=== PATIENT | female | born 1990 | race Caucasian/White ===

== ENCOUNTER 2017-01-04 22:41 | Emergency (ER) | payer OTHER ==
--- NOTE | 2017-01-04 23:16 | EDM.PDOC ---
ED HPI GENERAL MEDICAL PROBLEM - General Chief Complaint: Genitourinary Problem Stated Complaint: POSSIBLE UTI Time Seen by Provider: 01/04/17 23:13 - History of Present Illness INITIAL COMMENTS - FREE TEXT/NARRATIVE: HISTORY AND PHYSICAL: History of present illness: Patient 26-year-old female presents with a concern of discomfort with urination frequency and possible urinary tract infection she denies fever chills nausea vomiting other concern Review of systems: As per history of present illness and below otherwise all systems reviewed and negative. Past medical history: As per history of present illness and as reviewed below otherwise noncontributory. Surgical history: As per history of present illness and as reviewed below otherwise noncontributory. Social history: No reported history of drug or alcohol abuse. Family history: As per history of present illness and as reviewed below otherwise noncontributory. Physical exam: HEENT: Atraumatic, normocephalic, pupils reactive, negative for conjunctival pallor or scleral icterus, mucous membranes moist, throat clear, neck supple, nontender, trachea midline. Lungs: Clear to auscultation, breath sounds equal bilaterally, chest nontender. Heart: S1S2, regular, negative for clicks, rubs, or JVD. Abdomen: Soft, nondistended, nontender. Negative for masses or hepatosplenomegaly. Negative for costovertebral tenderness. Pelvis: Stable nontender. Genitourinary: Deferred. Rectal: Deferred. Extremities: Atraumatic, negative for cords or calf pain. Neurovascular unremarkable. Neuro: Awake, alert, oriented. Cranial nerves II through XII unremarkable. Cerebellum unremarkable. Motor and sensory unremarkable throughout. Exam nonfocal. Diagnostics: UA urine culture and sensitivity Therapeutics: None Impression: #1 urinary tract infection Definitive disposition and diagnosis as appropriate pending reevaluation and review of above. Vaginal Pain Score (Numeric/FACES): 6 - Related Data Allergies Allergy/AdvReac Type Severity Reaction Status Date / Time aspartame Allergy Swelling Verified 01/04/17 22:53 sulfamethoxazole Allergy Syncope Verified 01/04/17 22:53 [From Bactrim] trimethoprim [From Bactrim] Allergy Syncope Verified 01/04/17 22:53 Home Meds: Home Meds Topiramate [Topamax] 50 mg PO BID 01/04/17 [History] Past Medical History - Past Health History Medical/Surgical History: Denies Medical/Surgical History HEENT History: Reports: None Cardiovascular History: Reports: Heart Murmur Respiratory History: Reports: None Gastrointestinal History: Reports: None Genitourinary History: Reports: Renal Disease [employer]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 Musculoskeletal History: Reports: None Neurological History: Reports: None Other Neuro History: 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 disease; Injury on T& Aug 03 2016 Psychiatric History: Reports: Anxiety, Depression, PTSD Endocrine/Metabolic History: Reports: None Hematologic History: Reports: None Immunologic History: Reports: None Oncologic (Cancer) History: Reports: None Dermatologic History: Reports: None Other Dermatologic History: chronic recurrent shingles - Infectious Disease History Infectious Disease History: Reports: None - Past Surgical History Head Surgeries/Procedures: Reports: None HEENT Surgical History: Reports: None Cardiovascular Surgical History: Reports: None Respiratory Surgical History: Reports: None GI Surgical History: Reports: None Female Surgical History: Reports: None Musculoskeletal Surgical History: Reports: Other (See Below) Other Musculoskeletal Surgeries/Procedures:: multiple fx (broke arms, nose, toes ) Social & Family History - Family History Family Medical History: Noncontributory - Tobacco Use Smoking Status *Q: Never Smoker Second Hand Smoke Exposure: Yes - Caffeine Use Caffeine Use: Reports: None Caffeine Use Comment: 3-4cups/day - Recreational Drug Use Recreational Drug Use: No ED ROS GENERAL - Review of Systems Review Of Systems: ROS reveals no pertinent complaints other than HPI. ED EXAM, GENERAL - Physical Exam Exam: See Below (See dictation) Course - Vital Signs Last Recorded V/S: Last Vital Signs Temp 35.9 C 01/04/17 22:55 Pulse 111 H 01/04/17 22:55 Resp 17 01/04/17 22:55 BP 157/90 H 01/04/17 22:55 Pulse Ox 97 01/04/17 22:55 - Orders/Labs/Meds Labs: Laboratory Tests 01/04/17 Range/Units 22:45 Urine Color YELLOW Urine Appearance CLOUDY Urine pH 5.5 (5.0-8.0) Ur Specific [place] >= 1.030 (1.001-1.035) Urine Protein 30 (NEGATIVE) mg/dL Urine Glucose (UA) NEGATIVE (NEGATIVE) mg/dL Urine Ketones TRACE H (NEGATIVE) mg/dL Urine Occult Blood LARGE H (NEGATIVE) Urine Nitrite NEGATIVE (NEGATIVE) Urine Bilirubin NEGATIVE (NEGATIVE) Urine Urobilinogen 0.2 (<2.0) EU/dL Ur Leukocyte Esterase MODERATE (NEGATIVE) Urine RBC 30-40 (0-2/HPF) Urine WBC 50-75 (0-5/HPF) Ur Epithelial Cells FEW (NONE-FEW) Urine Bacteria 1+ H (NEGATIVE) Departure - Departure Time of Disposition: 23:15 Disposition: Home, Self-Care 01 Condition: Good Clinical Impression: UTI, Urinary tract infectious disease - Discharge Information Forms: ED Department Discharge Additional Instructions: The following information is given to patients seen in the emergency department who are being discharged to home. This information is to outline your options for follow-up care. We provide all patients seen in our emergency department with a follow-up referral. The need for follow-up, as well as the timing and circumstances, are variable depending upon the specifics of your emergency department visit. If you don't have a primary care physician on staff, we will provide you with a referral. We always advise you to contact your personal physician following an emergency department visit to inform them of the circumstance of the visit and for follow-up with them and/or the need for any referrals to a consulting specialist. The emergency department will also refer you to a specialist when appropriate. This referral assures that you have the opportunity for followup care with a specialist. All of these measure are taken in an effort to provide you with optimal care, which includes your followup. Under all circumstances we always encourage you to contact your private physician who remains a resource for coordinating your care. When calling for followup care, please make the office aware that this follow-up is from your recent emergency room visit. If for any reason you are refused follow-up, please contact the [facility] emergency department at and asked to speak to the emergency department charge nurse. Roro. as prescribed call primary medical doctor on today's return as needed discussed
[2017-01-04 23:23] VITALS: BP 141/88
== END 2017-01-04 23:23 | disposition home or self-care (01) ==
LOC: MW.ED 22:41
DX: N39.0 Urinary tract infection, site not specified (principal); Z88.2 Allergy status to sulfonamides; Z88.8 Allergy status to other drugs, medicaments and biological substances
CPT/HCPCS: 81001; 99282; 99283

== ENCOUNTER 2017-03-07 14:02 | Emergency (ER) | payer OTHER ==
[2017-03-07] MEDS ORDERED: Ondansetron 4 MG Tab.DIS PO ONE (14:29)
[2017-03-07] MEDS ORDERED: Ketorolac 60 MG/2 ML SDV IM ONE (14:29)
--- NOTE | 2017-03-07 14:35 | EDM.PDOC ---
ED HPI GENERAL MEDICAL PROBLEM - General Chief Complaint: Genitourinary Problem Stated Complaint: POSSIBLE UTI Time Seen by Provider: 03/07/17 14:30 Source of Information: Reports: Patient History Limitations: Reports: No Limitations - History of Present Illness INITIAL COMMENTS - FREE TEXT/NARRATIVE: HISTORY AND PHYSICAL: History of present illness: Patient is a 26-year-old female who presents to the emergency room today with complaints of dysuria, bilateral flank pain, suprapubic tenderness, and nausea. Patient reports she has a history of kidney disease and frequently has UTIs and chronic hematuria. This morning she woke up with painful urination and odor. Reports that her symptoms are consistent with previous UTIs. Patient states she's used Macrobid in the past with good relief. Currently requesting something for her nausea. Reports she has had Toradol injection for pain management with good relief, and would like an injection as she is currently uncomfortable. Patient denies any possibility of as she has the Nexplanon implant. Review of systems: As per history of present illness and below otherwise all systems reviewed and negative. Past medical history: As per history of present illness and as reviewed below otherwise noncontributory. Surgical history: As per history of present illness and as reviewed below otherwise noncontributory. Social history: No reported history of drug or alcohol abuse. Family history: As per history of present illness and as reviewed below otherwise noncontributory. Physical exam: Gen.: Nontoxic appearing 26-year-old female. Answers questions appropriately. Able to answer questions in full sentences without shortness of breath. HEENT: Atraumatic, normocephalic, pupils reactive, negative for conjunctival pallor or scleral icterus, mucous membranes moist, throat clear, neck supple, nontender, trachea midline. Lungs: Clear to auscultation, breath sounds equal bilaterally, chest nontender. Heart: S1S2, regular rate and rhythm. Abdomen: Soft, nondistended, generalized tenderness throughout, and suprapubic tenderness with palpation. Negative for masses or hepatosplenomegaly. Positive for costovertebral tenderness bilaterally. Pelvis: Stable nontender. Genitourinary: Deferred. Rectal: Deferred. Extremities: Atraumatic. Moves all herself. Neurovascular unremarkable. Neuro: Awake, alert, oriented. Cranial nerves II through XII unremarkable. Cerebellum unremarkable. Motor and sensory unremarkable throughout. Exam nonfocal. Diagnostics: UA, UC Therapeutics: Toradol IM, Zofran ODT Impression: Dysuria Plan: 1. Pharmacies are currently closed. Patient reports she prefers Macrobid for UTIs. We'll dispense enough medication to get her through until Wednesday when she can fill her rest of her prescription as instrument does not have this medication available to dispense. Urine will be sent for culture. 2. May use Pyridium for discomfort. Take as directed. May use Tylenol and/or ibuprofen for pain and fever control. 3. Follow-up with her primary care provider in the next 1-2 days. Please return to the ED as needed as discussed Definitive disposition and diagnosis as appropriate pending reevaluation and review of above. Onset: Today Onset Date: 03/07/17 Onset Time: 06:00 Location: Reports: Abdomen, Other (Lateral flank and suprapubic) Bilateral Lower Abdominal Pain Score (Numeric/FACES): 8 - Related Data Allergies Allergy/AdvReac Type Severity Reaction Status Date / Time aspartame Allergy Swelling Verified 03/07/17 14:13 sulfamethoxazole Allergy Syncope Verified 03/07/17 14:13 [From Bactrim] trimethoprim [From Bactrim] Allergy Syncope Verified 03/07/17 14:13 Home Meds: Home Meds Topiramate [Topamax] 50 mg PO BID 01/04/17 [History] Past Medical History - Past Health History Medical/Surgical History: Denies Medical/Surgical History HEENT History: Reports: None Cardiovascular History: Reports: Heart Murmur Respiratory History: Reports: None Gastrointestinal History: Reports: None Genitourinary History: Reports: Renal Disease 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 Musculoskeletal History: Reports: None Neurological History: Reports: None Other Neuro History: 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 disease; Injury on & Aug 03 2016 Psychiatric History: Reports: Anxiety, Depression, PTSD, Other (See Below) Other Psychiatric History: borderline personality disorder Endocrine/Metabolic History: Reports: None Hematologic History: Reports: None Immunologic History: Reports: None Oncologic (Cancer) History: Reports: None Dermatologic History: Reports: None Other Dermatologic History: chronic recurrent shingles - Infectious Disease History Infectious Disease History: Reports: None - Past Surgical History Head Surgeries/Procedures: Reports: None HEENT Surgical History: Reports: None Cardiovascular Surgical History: Reports: None Respiratory Surgical History: Reports: None GI Surgical History: Reports: None Female Surgical History: Reports: None Musculoskeletal Surgical History: Reports: Other (See Below) Other Musculoskeletal Surgeries/Procedures:: multiple fx (broke arms, nose, toes ) Social & Family History - Family History Family Medical History: Noncontributory - Tobacco Use Smoking Status *Q: Never Smoker Second Hand Smoke Exposure: No - Caffeine Use Caffeine Use: Reports: Coffee Caffeine Use Comment: 3-4cups/day - Recreational Drug Use Recreational Drug Use: No ED ROS GENERAL - Review of Systems Review Of Systems: ROS reveals no pertinent complaints other than HPI. ED EXAM, GENERAL - Physical Exam Exam: See Below (See dictation) Course - Vital Signs Last Recorded V/S: Last Vital Signs Temp 36.8 C 03/07/17 14:09 Pulse 106 H 03/07/17 14:09 Resp 18 03/07/17 14:09 BP 133/87 03/07/17 14:09 Pulse Ox 99 03/07/17 14:09 - Orders/Labs/Meds Orders: Active Orders 24 hr Category Date Time Status CULTURE URINE [RM] Stat Lab 03/07/17 14:17 Received Labs: Laboratory Tests 03/07/17 Range/Units 14:17 Urine Color YELLOW Urine Appearance CLEAR Urine pH 6.0 (5.0-8.0) Ur Specific [place] 1.025 (1.001-1.035) Urine Protein 30 (NEGATIVE) mg/dL Urine Glucose (UA) NEGATIVE (NEGATIVE) mg/dL Urine Ketones NEGATIVE (NEGATIVE) mg/dL Urine Occult Blood LARGE H (NEGATIVE) Urine Nitrite NEGATIVE (NEGATIVE) Urine Bilirubin NEGATIVE (NEGATIVE) Urine Urobilinogen 0.2 (<2.0) EU/dL Ur Leukocyte Esterase SMALL (NEGATIVE) Urine RBC 35-40 (0-2/HPF) Urine WBC 25-30 (0-5/HPF) Ur Epithelial Cells MODERATE (NONE-FEW) Urine Bacteria 1+ H (NEGATIVE) Meds: Medications Discontinued Medications Generic Name Dose Route Start Last Admin Trade Name Freq PRN Reason Stop Dose Admin Ketorolac Tromethamine 60 mg 03/07/17 14:29 03/07/17 15:02 Toradol IM 03/07/17 14:30 60 mg ONETIME ONE Administration Nitrofurantoin Macrocrystals 100 mg 03/07/17 15:04 Macrobid PO 03/07/17 15:05 ONETIME ONE Ondansetron HCl 4 mg 03/07/17 14:29 03/07/17 15:01 Zofran Odt PO 03/07/17 14:30 4 mg ONETIME ONE Administration Departure - Departure Time of Disposition: 15:15 Disposition: Home, Self-Care 01 Condition: Good Clinical Impression: UTI (urinary tract infection) Qualifiers: Urinary tract infection type: site unspecified Hematuria presence: with hematuria Qualified Code(s): N39.0 - Urinary tract infection, site not specified ; R31.9 - Hematuria, unspecified - Discharge Information Referrals: PCP,None [Primary Care Provider] - Forms: ED Department Discharge Additional Instructions: The following information is given to patients seen in the emergency department who are being discharged to home. This information is to outline your options for follow-up care. We provide all patients seen in our emergency department with a follow-up referral. The need for follow-up, as well as the timing and circumstances, are variable depending upon the specifics of your emergency department visit. If you don't have a primary care physician on staff, we will provide you with a referral. We always advise you to contact your personal physician following an emergency department visit to inform them of the circumstance of the visit and for follow-up with them and/or the need for any referrals to a consulting specialist. The emergency department will also refer you to a specialist when appropriate. This referral assures that you have the opportunity for followup care with a specialist. All of these measure are taken in an effort to provide you with optimal care, which includes your followup. Under all circumstances we always encourage you to contact your private physician who remains a resource for coordinating your care. When calling for followup care, please make the office aware that this follow-up is from your recent emergency room visit. If for any reason you are refused follow-up, please contact the [facility] emergency department at and ask to speak to the emergency department charge nurse. [facility] Primary care- Internal Medicine and Family [address] [address] 1. Please take her Macrobid 1 tablet twice daily 5 days as directed. 2. May use Pyridium for discomfort. Take as directed. May use Tylenol and/or ibuprofen for pain and fever control. 3. Follow-up with her primary care provider in the next 1-2 days. Please return to the ED as needed as discussed - My Orders Last 24 Hours: My Active Orders 03/07/17 14:17 CULTURE URINE [RM] Stat - Assessment/Plan Last 24 Hours: My Active Orders 03/07/17 14:17 CULTURE URINE [RM] Stat
[2017-03-07] MEDS ORDERED: Nitrofurantoin Monohydrate/Macrocrystalline 100 MG Cap PO ONE ×2 (15:04→15:38)
[2017-03-07] MEDS ORDERED: Nitrofurantoin Monohydrate/Macrocrystalline 100 MG Cap ONE (15:20)
[2017-03-07 15:34] VITALS: BP 132/77
== END 2017-03-07 15:32 | disposition home or self-care (01) ==
LOC: MW.ED 14:02
DX: N39.0 Urinary tract infection, site not specified (principal); Z88.2 Allergy status to sulfonamides; Z88.1 Allergy status to other antibiotic agents
CPT/HCPCS: 81001; 87086; 96372; 99283; A9270; J1885; 87088; 87186

== ENCOUNTER 2017-04-18 14:56 | Emergency (ER) | payer OTHER ==
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
[2017-04-18] MEDS ORDERED: Ketorolac 30 MG/ML SDV IVPUSH ONE (15:17)
[2017-04-18 16:49] VITALS: BP 130/93
--- NOTE | 2017-04-19 13:39 | CR ---
EXAM DATE: 04/18/17 PATIENT'S AGE: 27 Patient: TIM BAR Facility: [place], [place] Site . Site : 1990 Study: XRay Extremity Left hip [id number] 3:43:16 PM Ordering Physician: Doctor Donovan Final Report: INDICATION: Injury. Technique: AP pelvis and 2 views left hip. Findings: Small amount of lucency or small lucent lesions with associated mild sclerosis involving the left femoral neck nonspecific but likely benign. No acute fracture or dislocation in the hips or pelvis. Minimal degenerative change pubic symphysis. Mild sclerosis about the SI joints. Remainder negative. Dictated by Karlo Gordon MD @ Apr 18 2017 3:56PM (Electronic Signature) Report Signed by Proxy. MARÍA
== END 2017-04-18 16:06 | disposition home or self-care (01) ==
LOC: MW.ED 14:56
DX: S70.02XA Contusion of left hip, initial encounter (principal); F32.9 Major depressive disorder, single episode, unspecified; Z88.1 Allergy status to other antibiotic agents; Z88.8 Allergy status to other drugs, medicaments and biological substances; W22.8XXA Striking against or struck by other objects, initial encounter
CPT/HCPCS: 73502; 81025; 96374; 99283; J1885

== ENCOUNTER 2022-09-03 07:31 | Emergency (ER) | payer OTHER ==
[2022-09-03] MEDS ORDERED: Lactated Ringers 1,000 ML IV ONE (08:16)
[2022-09-03] MEDS ORDERED: Sodium Chloride 0.9% 20 ML SDV IV PRN (08:16)
[2022-09-03] MEDS ORDERED: Morphine 4 MG/ML Syringe IVPUSH ONE (08:53)
[2022-09-03] MEDS ORDERED: Ondansetron 4 MG/2 ML SDV IVPUSH ONE (08:53)
[2022-09-03 09:13] LABS: POTASSIUM,K 4.4 mmol/L (3.5-5.1)
[2022-09-03 09:22] LABS: CORONAVIRUS COVID-19 NAA NEGATIVE (NEGATIVE); INFLUENZA A NAA NEGATIVE (NEGATIVE); INFLUENZA B NAA NEGATIVE (NEGATIVE); RESPIRATORY SYNCYTIAL VIR NAA NEGATIVE (NEGATIVE)
[2022-09-03] MEDS ORDERED: Iopamidol 755 MG/ML 500 ML Multipack Bottle IVPUSH STA (10:03)
[2022-09-03 11:16] VITALS: BP 124/82; PULSE 85
== END 2022-09-03 11:17 | disposition home or self-care (01) ==
LOC: MW.ED 07:31
DX: R10.9 Unspecified abdominal pain (principal); R19.7 Diarrhea, unspecified; R11.2 Nausea with vomiting, unspecified; Z88.1 Allergy status to other antibiotic agents; Z88.8 Allergy status to other drugs, medicaments and biological substances; Z20.822 Contact with and (suspected) exposure to COVID-19; Z90.710 Acquired absence of both cervix and uterus
CPT/HCPCS: 0241U; 36415; 74177; 80053; 83605; 83690; 85025; 87040; 96361; 96374; 96375; 99284; J2270; J2405; J7120; Q9967

== ENCOUNTER 2024-01-26 17:39 | Emergency (ER) | payer BC, OTHER ==
[2024-01-26] MEDS: Bacitracin Oint 1 GM U/D Packet TOP ONE (19:05)
[2024-01-26] MEDS: Amoxicillin/Clavulanate K 875-125 MG Tab PO ONE (19:05)
[2024-01-26] MEDS: Ibuprofen 800 MG Tab PO ONE (19:05)
[2024-01-26 19:13] VITALS: BP 119/75; PULSE 92
== END 2024-01-26 19:12 | disposition home or self-care (01) ==
LOC: MW.ED 17:39
DX: S61.451A Open bite of right hand, initial encounter (principal); I10 Essential (primary) hypertension; Z90.49 Acquired absence of other specified parts of digestive tract; Z90.710 Acquired absence of both cervix and uterus; Z88.2 Allergy status to sulfonamides; Z91.018 Allergy to other foods; Z75.8 Other problems related to medical facilities and other health care; W54.0XXA Bitten by dog, initial encounter
CPT/HCPCS: 99283; A9270